=== PATIENT | female | born 1960 ===

== ENCOUNTER 2017-05-15 07:38 | Observation (INO) | payer OTHER ==
--- NOTE | 2017-05-15 07:58 | C.PDOC ---
History Of Present Illness 56-YEAR-OLD FEMALE, PRESENTS TO THE EMERGENCY DEPARTMENT WITH COMPLAINTS OF NEW ONSET PARESTHESIA TO R FACE SINCE 0600. PATIENT NOTES +R VISION CHANGE SINCE YEST. PS FEELS LIKE LIGHT IS FLASHING TOWARDS HER, PRESENT ONLY WHEN MOVES EYES. DENIES VISION LOSS, EYE PAIN. GEN WEAKNESS. past medical history of arthritis, migraines, and gastritis EXAM HEENT NO GROSS VISION DEFICIT. EOMI. NEURO SEE NIH GAIT WNL REMAINDER NEG Time Seen by Provider: 05/15/17 07:55 Chief Complaint (Nursing): Weakness/Neurological Deficit History Per: Patient History/Exam Limitations: no limitations Onset/Duration Of Symptoms: Hrs Current Symptoms Are (Timing): Still Present Past Medical History Reviewed: Historical Data, Nursing Documentation, Vital Signs Vital Signs: Last Vital Signs Temp 98.9 F 05/15/17 07:47 Pulse 66 05/15/17 09:22 Resp 14 05/15/17 09:22 BP 104/66 05/15/17 09:22 Pulse Ox 97 05/15/17 09:24 Family History: States: No Known Family Hx - Social History Hx Alcohol Use: No Hx Substance Use: No Review Of Systems Except As Marked, All Systems Reviewed And Found Negative. Constitutional: Negative for: Fever, Weakness Eyes: Positive for: Vision Change (+R, FEELS LIKE LIGHT IS FLASHING). Negative for: Pain Cardiovascular: Negative for: Chest Pain Respiratory: Negative for: Shortness of Breath Gastrointestinal: Negative for: Vomiting Neurological: Positive for: Other (PARESTHESIA TO R FACE). Negative for: Weakness, Numbness, Incoordination, Change in Speech, Headache Physical Exam - Physical Exam Appears: Non-toxic, No Acute Distress Skin: Normal Color, Warm, Dry, No Rash Head: Atraumatic, Normacephalic Eye(s): bilateral: Normal Inspection, PERRL, EOMI, Other (NO GROSS VISION DEFICIT.) Nose: Normal Oral Mucosa: Moist Lips: Normal Appearing Neck: Normal ROM Cardiovascular: Rhythm Regular, No Murmur Respiratory: Normal Breath Sounds, No Accessory Muscle Use Extremity: Normal ROM Neurological/Psych: Oriented x3, Normal Speech (No focal deficit) Gait: Steady ED Course And Treatment - Laboratory Results Result Diagrams: 05/15/17 08:36 05/15/17 08:36 ECG: Interpreted By Me ECG Rhythm: Sinus Rhythm ECG Interpretation: Normal Rate From EC O2 Sat by Pulse Oximetry: 97 Pulse Ox Interpretation: Normal - Radiology CXR: Interpreted by Me CXR Interpretation: Yes: No Acute Disease NIHSS Stroke Scale - Date/Time Evaluation Performed Date Performed: 05/15/17 Time Performed: 08:06 When Was NIHSS Performed: Baseline - How Severe is the Stoke Level of Consciousness: 0=Alert LOC to Questions: 0=Both comments correct LOC to commands: 0=Obeys both correctly Best Gaze: 0=Normal Visual: 0=No visual loss Facial: 0=Normal Motor Arm - Left: 0=No drift Motor Arm - Right: 0=No drift Motor Leg - Left: 0=No drift Motor Leg - Right: 0=No drift Limb Ataxia: 0=Absent Sensory: 1=Mild to moderate loss Best Language: 0=No aphasia Dysarthia: 0=Normal articulation Extinction & Inattention (Neglect): 0=Normal, no object Score: 1 Severity Of Stroke: 1-4= Minor Stroke Progress - Re-Evaluation Re-evaluation Note: 05/15/17 08:45 advised by registration PT HAS HAD PRIOR ER VISITS. - Data Reviewed Data Reviewed: Lab, Diagnostic imaging, EKG, Old records - Critical Care Citical Care: Excluding Proc Time Critical Care Time: 120 minutes rTPA Inclusion/Exclusion - Refusal of Treatment Patient Refused Treatment: No - Inclusion Criteria for Altepase Patient is 18 years or Older: Yes The Clinical Diagnosis of Ischemic Stroke That is Causing a Potentially Disabling Neurological Deficit: Yes Time of Onset is Well Established to be Less Than 270 Minute Before Treatment Would Begin: Yes Risk/Benefit Discussed With Patient/Family Member Present: Yes - Exclusion Criteria for Altepase Uncontrolled Hypertension at Time of Treatment (Systolic BP above 185 or Diastolic BP above 110 mmHg): No Active Internal Bleeding: No Known Bleeding Diathesis Including but Not Limited to: Platelets Below 100,000/ mm,PTT Above 40 sec After Heparin Use, Current Use of Oral Anitcoagulant With INR Greater Than 1.7 or PT Greater Than 15 secs: No Evidence of an Intracranial Hemorrhage: No Evidence of Major Acute Infarct With Signs Greater Than 1/3 MCA Territory: No Suspicion of Subarachnoid Hemorrhage on Pretreatment Evaluation Even if CT Head Negative For Hemorrhage: No - Warning to TPA With Conditions Following Conditions Weighed Against Anticipated Benefit: No Condition: Stroke Serevity Too Mild Disposition Counseled Patient/Family Regarding: Studies Performed, Diagnosis - Disposition Disposition: HOSPITALIZED Disposition Time: 09:49 Condition: STABLE - POA Present On Arrival: None - Clinical Impression Clinical Impression: Paresthesia, Vision changes, TIA (transient ischemic attack) Decision To Admit - Pt Status Changed To: Hospital Disposition Of: Observation - . Bed Request Type: Telemetry Admitting Physician: Igor Wolf Patient Diagnosis: Paresthesia, Vision changes, TIA (transient ischemic attack)
--- NOTE | 2017-05-15 08:28 | CT ---
PROCEDURE: CT HEAD WITHOUT CONTRAST. HISTORY: Code Stroke R FACIAL PARESTHESA COMPARISON: None available. TECHNIQUE: Axial computed tomography images were obtained through the head/brain without intravenous contrast. Radiation dose: Total exam DLP = 694.66 mGy-cm. This CT exam was performed using one or more of the following dose reduction techniques: Automated exposure control, adjustment of the mA and/or kV according to patient size, and/or use of iterative reconstruction technique. FINDINGS: HEMORRHAGE: No intracranial hemorrhage. BRAIN: No evidence of acute. No obvious parenchymal nor extra-axial mass or collection. Mild generalized volume loss. VENTRICLES: No obstructive hydrocephalus. CALVARIUM: U no acute calvarial fractures. . PARANASAL SINUSES: Small focal area polypoid like mucosal thickening left maxillary antrum. MASTOID AIR CELLS: Unremarkable as visualized. No inflammatory changes. OTHER FINDINGS: None. IMPRESSION: No acute intracranial hemorrhage. Mild generalized volume loss. Dr. Ortega informed these findings of approximately at the 0822 hrs. with written down and verification.
[2017-05-15 08:43] LABS: BASO # 0.1 K/uL (0.0-0.2); EOS # 0.1 K/uL (0.0-0.7); EOS % 1.9 % (0.0-4.0); HEMATOCRIT 40.6 % (34.0-47.0); LYMPH # 1.8 K/uL (1.0-4.3); LYMPH % 23.2 % (20.0-40.0); MEAN CELL VOLUME 88.1 fL (81.0-99.0); MEAN CORPUSCULAR HEMOGLOBIN 29.8 pg (27.0-31.0); MEAN CORPUSCULAR HGB CONC 33.8 g/dL (33.0-37.0); MONO # 0.5 K/uL (0.0-0.8); MONO % 6.4 % (0.0-10.0); NRBC % 0.1 % (0.0-2.0); RED CELL DISTRIBUTION WIDTH 13.8 % (11.5-14.5); WHITE BLOOD COUNT 7.7 K/uL (4.8-10.8)
[2017-05-15 08:48] LABS: CHLORIDE 99 mmol/L (98-107); POTASSIUM 3.6 mmol/L (3.6-5.2); SODIUM 142 mmol/L (132-148)
[2017-05-15 08:50] LABS: ALB/GLOB RATIO 1.2 (1.0-2.1); BILIRUBIN,TOTAL 0.7 mg/dL (0.2-1.3); CARBON DIOXIDE 29 mmol/L (22-30); CHOLESTEROL 189 mg/dL (0-199); GFR AFRICAN-AMERICAN > 60; TOTAL PROTEIN 7.4 g/dL (6.3-8.3)
[2017-05-15 08:51] LABS: ALKALINE PHOSPHATASE 105 U/L (38-126); ALT/SGPT 37 U/L (9-52); AST/SGOT 28 U/L (14-36); BLOOD UREA NITROGEN 14 mg/dL (7-17); CALCIUM 8.7 mg/dl (8.6-10.4); GLUCOSE,RANDOM 101 mg/dL (65-105)
--- NOTE | 2017-05-15 09:41 | RAD ---
HISTORY: Paresthesia. COMPARISON: No prior study available comparison FINDINGS: LUNGS: Mild bibasilar atelectasis. PLEURA: No significant pleural effusion identified, no pneumothorax apparent. CARDIOVASCULAR: Normal. OSSEOUS STRUCTURES: No minor multilevel degenerative spondylosis of the thoracic spine. VISUALIZED UPPER ABDOMEN: Normal. OTHER FINDINGS: None. IMPRESSION: Mild bibasilar atelectasis.
--- NOTE | 2017-05-15 11:12 | CP.PCM.HP ---
<Edna Ho - Last Filed: 05/15/17 11:40> History of Present Illness - History of Present Illness History of Present Illness: CC: right facial numbness 56 year old female with past medical history of arthritis, gastritis and migraines presents with right sided orbital pain, right facial numbness and tingling and right eye floaters. These symptoms began last night around 6 pm. Since last night symptoms improved, but this morning symptoms worsened. Patient did not take any medications for her symptoms. Patient denies having any weakness, numbness or tingling in here extremities. Patient denies having these symptoms before. She states that this pain does not feel like her HAs in the past. patient denies having any CP, SOB, abd pain, N/v/d/C. In ED, patient had CT of head which was negative. 12 point ROS are negative except for the above mentioned. PMHx: stated above Sx: partial hysterectomy Meds: occasionally takes ibuprofen, ranitidine. Daily multivitamin, Vit E, omega 3. Takes a water pill daily but does not know name NKDA Social; denies tobacco or drug use. Occasional ETOH use PMD: Dr. Sarah Present on Admission - Present on Admission Any Indicators Present on Admission: No Past Patient History - Past Social History Smoking Status: Never Smoked Chewing Tobacco Use: No Cigar Use: No Alcohol: Occasional Drugs: Denies - CARDIAC Other/Comment: "fluid retention" - PSYCHIATRIC Hx Substance Use: No - SURGICAL HISTORY Other/Comment: uterine cyst and ovarian cyst sx Meds Allergies/Adverse Reactions: Allergies Allergy/AdvReac Type Severity Reaction Status Date / Time No Known Allergies Allergy Unverified 05/15/17 07:46 Physical Exam - Constitutional Appears: Non-toxic, No Acute Distress - Head Exam Head Exam: ATRAUMATIC - Eye Exam Eye Exam: EOMI - ENT Exam ENT Exam: Mucous Membranes Moist - Respiratory Exam Respiratory Exam: Clear to Auscultation Bilateral. absent: Accessory Muscle Use , Rales, Rhonchi, Wheezes, Respiratory Distress - Cardiovascular Exam Cardiovascular Exam: REGULAR RHYTHM, +S1, +S2. absent: Diastolic murmur, Gallop , Rubs, Systolic Murmur - GI/Abdominal Exam GI & Abdominal Exam: Normal Bowel Sounds, Soft. absent: Distended, Firm, Rebound, Rigid, Tenderness - Extremities Exam Extremities exam: Negative for: pedal edema, tenderness - Neurological Exam Neurological exam: Alert, CN II-XII Intact, Motor Sensory Deficit (right sided slight sensory deficit ), Oriented x3 - Psychiatric Exam Psychiatric exam: Normal Affect, Normal Mood - Skin Skin Exam: Dry, Intact, Normal Color, Warm Results - Vital Signs Recent Vital Signs: Last Vital Signs Temp 98.9 F 05/15/17 07:47 Pulse 66 05/15/17 09:22 Resp 14 05/15/17 09:22 BP 104/66 05/15/17 09:22 Pulse Ox 97 05/15/17 09:50 - Labs Result Diagrams: 05/15/17 08:36 05/15/17 08:36 Assessment & Plan - Assessment and Plan (Free Text) Assessment: 56 year old female with past medical history of arthiritis, gastritis, and migraines is admitted for right sided GUPTA, numbness and right sided sensory deficit R/O CVA. CT of head on admission was negative. Vital signed are currently stable Right sided numbness R/O CVA - Neurology, Dr. Stephenson is consulted - Patient will be given stat dose of Aspirin 325 mg and Plvix 300 mg po - Lipid panel shows: TG 128 Chol 189 LDL 135 HDL 44 - Patient started on Crestor 20 mg po qd - NS 100 cc - 1 dose of 2 mg Mg sulfate - 1 dose of 10 mg Decadron IV for GUPTA - Will check MRI/MRA of head and neck, carotid US, echo - Will check TSH/T4 and Hgb A1c - NPO Prophylaxis - Lovenox 40 mg SC - pepcid 20 mg po bid - SCDs Case discussed with attending, Dr. Wolf - Date & Time Date: 05/15/17 Time: 11:46 <Igor Wolf - Last Filed: 05/15/17 17:33> Results - Vital Signs Recent Vital Signs: Last Vital Signs Temp 98.1 F 05/15/17 12:53 Pulse 74 05/15/17 12:53 Resp 20 05/15/17 12:53 BP 116/64 05/15/17 12:53 Pulse Ox 97 05/15/17 12:53 - Labs Result Diagrams: 05/15/17 08:36 05/15/17 08:36 Labs: Laboratory Results - last 24 hr 05/15/17 11:05 Urine Color Straw Urine Clarity Clear Urine pH 7.0 Ur Specific [place] 1.005 Urine Protein Negative Urine Glucose (UA) Normal Urine Ketones Negative Urine Blood Negative Urine Nitrate Negative Urine Bilirubin Negative Urine Urobilinogen Normal Ur Leukocyte Esterase Neg Urine WBC (Auto) 2 Urine RBC (Auto) < 1 Ur Squamous Epith Cells 2 Urine Bacteria Rare Attending/Attestation - Attestation I have personally seen and examined this patient.: Yes I have fully participated in the care of the patient.: Yes I have reviewed all pertinent clinical information: Yes Notes (Text): 05/15/17 17:33 Patient seen and examined at bedside with the resident Patient is admitted to rule out CVA/TIA Neurology consultation has been requested and workup is in progress I discussed the plan of care with the resident and agree with assessment and plan documented by the resident.
[2017-05-15 11:16] LABS: RBC URINE < 1 /hpf (0-3); URINE BACTERIA RARE (<OCC); URINE BILIRUBIN NEGATIVE (NEGATIVE); URINE BLOOD NEGATIVE (NEGATIVE); URINE COLOR Straw (YELLOW); URINE GLUCOSE (UA) NORMAL (Normal); URINE KETONE NEGATIVE (NEGATIVE); URINE LEUKOCYTE ESTERASE NEG Leu/uL (Negative); URINE PROTEIN NEGATIVE (NEGATIVE); URINE UROBILINOGEN NORMAL mg/dL (0.2-1.0); WBC URINE 2 /hpf (0-5)
[2017-05-15] MEDS ORDERED: Enoxaparin 40 mg Syringe ONE (11:28)
[2017-05-15] MEDS: Enoxaparin 40 mg Syringe SC SCH (11:29)
[2017-05-15] MEDS ORDERED: Dexamethasone 4 mg/1 ml ONE (11:46)
[2017-05-15] MEDS ORDERED: Sodium Chloride 0.9% 1,000 ML ONE (11:47)
[2017-05-15] MEDS: Sodium Chloride 0.9% 1,000 ML IV SCH ×3 (11:50→21:45)
--- NOTE | 2017-05-15 12:03 | CP.PCM.CON ---
History of Present Illness - History of Present Illness History of Present Illness: Mrs. Kelly Camacho is a 56-year-old woman with a past medical history of migraine headaches and dyslipidemia who presented to the ED after she developed a right retro-orbital headache associated with nausea, visual aura and loss of sensation of the right face and arm. Her symptoms have been on and off for the past 2-3 days. But, the headache started 3 days ago. Vital signs were normal. Neurology was consulted to assist with the management and care. Review of Systems - Review of Systems All systems: reviewed and no additional remarkable complaints except Past Patient History - Past Social History Smoking Status: Never Smoked Chewing Tobacco Use: No Cigar Use: No Alcohol: Occasional Drugs: Denies - CARDIAC Other/Comment: "fluid retention" - PSYCHIATRIC Hx Substance Use: No - SURGICAL HISTORY Other/Comment: uterine cyst and ovarian cyst sx Meds Allergies/Adverse Reactions: Allergies Allergy/AdvReac Type Severity Reaction Status Date / Time No Known Allergies Allergy Unverified 05/15/17 07:46 - Medications Medications: Current Medications Acetaminophen (Tylenol 325mg Tab) 650 mg PO Q6 PRN PRN Reason: pain Aspirin (Ecotrin) 81 mg PO DAILY [facility] Clopidogrel Bisulfate (Plavix) 75 mg PO DAILY [facility] Enoxaparin Sodium (Lovenox) 40 mg SC DAILY [facility] Last Admin: 05/15/17 11:29 Dose: 40 mg Famotidine (Pepcid) 20 mg PO BID [facility] Sodium Chloride (Sodium Chloride 0.9%) 1,000 mls @ 100 mls/hr IV .Q10H [facility] Last Admin: 05/15/17 11:50 Dose: 100 mls/hr Rosuvastatin Calcium (Crestor) 10 mg PO [facility] Physical Exam - Constitutional Appears: Well - Head Exam Head Exam: ATRAUMATIC, NORMAL INSPECTION, NORMOCEPHALIC - Eye Exam Eye Exam: EOMI, Normal appearance, PERRL - ENT Exam ENT Exam: Mucous Membranes Moist, Normal Exam - Neck Exam Neck exam: Positive for: Normal Inspection - Respiratory Exam Respiratory Exam: Clear to Auscultation Bilateral, NORMAL BREATHING PATTERN - Cardiovascular Exam Cardiovascular Exam: REGULAR RHYTHM, +S1, +S2 - GI/Abdominal Exam GI & Abdominal Exam: Normal Bowel Sounds, Soft. absent: Tenderness - Rectal Exam Rectal Exam: Deferred - Extremities Exam Extremities exam: Positive for: normal inspection - Back Exam Back exam: NORMAL INSPECTION - Neurological Exam Neurological exam: CN II-XII Intact, Oriented x3 - Expanded Neurological Exam Expanded Patient oriented to: person, place, time Cranial nerves: EOM's Intact: Normal, Facial Sensation: Normal Ataxia: No Cerebellar Function: Finger to Nose: Normal, Heel to [place]: Normal Upper motor neuron: Babinski Sign: Normal Sensory exam: Lower Extremity Light Touch: Normal, Lower Extremity Pin Prick: Normal, Upper Extremity Light Touch: Abnormal Right, Upper Extremity Pin Prick: Abnormal Right Neuro motor strength exam: Left Upper Extremity: 5, Right Upper Extremity: 5, Left Lower Extremity: 5, Right Lower Extremity: 5 DTR: Achilles Tendon Left: 2+, Achilles Tendon Right: 2+, Bicep Left: 2+, Bicep Right: 2+, Brachioradialis Left: 2+, Brachioradialis Right: 2+, Patellar Left: 2 +, Patellar Right: 2+, Tricep Left: 2+, Tricep Right: 2+ - Psychiatric Exam Psychiatric exam: Normal Affect, Normal Mood - Skin Skin Exam: Dry, Intact, Normal Color, Warm Results - Vital Signs Recent Vital Signs: Last Vital Signs Temp 98.9 F 05/15/17 07:47 Pulse 76 05/15/17 11:24 Resp 15 05/15/17 11:24 BP 118/69 05/15/17 11:24 Pulse Ox 100 05/15/17 11:24 - Labs Result Diagrams: 05/15/17 08:36 05/15/17 08:36 Labs: Laboratory Results - last 24 hr 05/15/17 11:05 Urine Color Straw Urine Clarity Clear Urine pH 7.0 Ur Specific [place] 1.005 Urine Protein Negative Urine Glucose (UA) Normal Urine Ketones Negative Urine Blood Negative Urine Nitrate Negative Urine Bilirubin Negative Urine Urobilinogen Normal Ur Leukocyte Esterase Neg Urine WBC (Auto) 2 Urine RBC (Auto) < 1 Ur Squamous Epith Cells 2 Urine Bacteria Rare - Imaging and Cardiology CT scan - head Status: Image reviewed by me, Report reviewed by me (No acute findings. ) Assessment & Plan (1) Complicated migraine Assessment and Plan: The visual and sensory changes associated with migraine-like headache in a patient with a history of migraine is most likely due to complicated migraine headache. However, due to the presentation and the history, we should also rule out ischemic stroke. I recommend the followin. Telemetry 2. MRI of the brain without contrast, MRA of the head/neck without contrast 3. Echocardiogram with bubble study 4. Load with Plavix 300 mg PO once and aspirin 81 mg daily 5. Magnesium Sulfate 2 grams IV once, Decadron 10 mg IV once for migraine 6. Crestor 10 mg PO daily to maintain LDL< 100 7. DVT Px 8. PT/OT eval 9. IVF with NS at 100 mL/hr Thank you. Status: Acute Priority: High (2) Paresthesia Status: Acute Priority: Medium - Assessment and Plan (Free Text) Assessment: Likely related to migraine, but will follow imaging and exam. Plan: See above plan.
[2017-05-16 07:47] LABS: BASO % 0.1 % (0.0-2.0); HEMATOCRIT 38.7 % (34.0-47.0); LYMPH # 1.4 K/uL (1.0-4.3); LYMPH % 9.4 % (20.0-40.0); MEAN CELL VOLUME 88.1 fL (81.0-99.0); MEAN CORPUSCULAR HEMOGLOBIN 29.5 pg (27.0-31.0); MEAN CORPUSCULAR HGB CONC 33.5 g/dL (33.0-37.0); MEAN PLATELET VOLUME 8.3 fL (7.2-11.7); MONO # 0.6 K/uL (0.0-0.8); MONO % 3.8 % (0.0-10.0); PLATELET COUNT 224 K/uL (130-400); RED CELL DISTRIBUTION WIDTH 13.5 % (11.5-14.5)
[2017-05-16 07:50] LABS: WHITE BLOOD COUNT 14.9 K/uL (4.8-10.8)
[2017-05-16 08:14] LABS: T4 5.33 ug/dL (5.5-11.0)
[2017-05-16 08:24] LABS: CHLORIDE 106 mmol/L (98-107); POTASSIUM 3.3 mmol/L (3.6-5.2); SODIUM 144 mmol/L (132-148)
[2017-05-16 08:26] LABS: GFR AFRICAN-AMERICAN > 60
[2017-05-16 08:27] LABS: ALB/GLOB RATIO 1.1 (1.0-2.1); ALKALINE PHOSPHATASE 93 U/L (38-126); ALT/SGPT 36 U/L (9-52); AST/SGOT 26 U/L (14-36); BILIRUBIN,TOTAL 0.5 mg/dL (0.2-1.3); BLOOD UREA NITROGEN 15 mg/dL (7-17); CARBON DIOXIDE 23 mmol/L (22-30); GLUCOSE,RANDOM 120 mg/dL (65-105); TOTAL PROTEIN 6.6 g/dL (6.3-8.3)
[2017-05-16 08:28] LABS: CALCIUM 8.1 mg/dl (8.6-10.4); THYROID STIMULATING HORMONE 0.83 mIU/L (0.46-4.68)
[2017-05-16 08:31] LABS: NEUTROPHIL 89 % (50-75); TOTAL CELLS COUNTED 100
[2017-05-16] MEDS ORDERED: Potassium Chloride 20 mEq ER Tab PO ONE (10:30)
[2017-05-16] MEDS: Enoxaparin 40 mg Syringe SC SCH (10:55)
--- NOTE | 2017-05-16 11:04 | MRI ---
PROCEDURE: MRI BRAIN WITHOUT CONTRAST HISTORY: right sided numbness COMPARISON: Noncontrast head CT from 05/15/2017 TECHNIQUE: Multiplanar, multisequence MR images of the brain were obtained without intravenous contrast enhancement. FINDINGS: HEMORRHAGE: None DWI: No evidence of an acute or early subacute infarction. BRAIN PARENCHYMA: There is focal increased T2/FLAIR signal in the left posterior parietal cortex without corresponding restricted diffusion Sahni-white matter differentiation is seen is preserved. There is no mass, mass effect or extra-axial fluid collection. There are few scattered tiny T2/FLAIR hyperintense foci in the subcortical supratentorial white matter. The midline sagittal structures are normal. VENTRICLES: There is mild global parenchymal volume loss and proportionate enlargement of the ventricles and cortical sulci, advanced for the patient's age. CRANIUM: There is normal bone marrow signal pattern e. ORBITS: Grossly unremarkable. PARANASAL SINUSES/MASTOIDS: Predominantly clear. VASCULAR SYSTEM: There are normal signal voids in the larger intracranial arteries. OTHER FINDINGS: None. IMPRESSION: 1. No acute intracranial abnormality, specifically, no evidence of acute infarction. 2. Focal abnormal signal in the left posterior parietal cortex is strictly nonspecific, the differential considerations include old infarction, encephalitis and neoplasm are not entirely excluded. A dedicated MRI of the brain with intravenous contrast is recommended for further characterization.
--- NOTE | 2017-05-16 11:06 | MRI ---
PROCEDURE: Magnetic Resonance Angiography Brain HISTORY: Right sided numbness COMPARISON: None available. TECHNIQUE: 3D time of flight MR angiography of the intracranial arteries was performed. Rotating maximum intensity projection images were generated. FINDINGS: INTERNAL CEREBRAL ARTERIES: Normal in caliber. The skull base, petrous, cavernous and supraclinoid segments are bilaterally widely patient. ANTERIOR CEREBRAL ARTERIES: Normal in caliber. A1 and A2 segments are widely patent. Smaller distal branches unremarkable, as visualized. MIDDLE CEREBRAL ARTERIES: Normal in caliber. M1 and M2 segments are widely patent. Perisylvian branches grossly symmetric. POSTERIOR CIRCULATION: Basilar Artery: Normal in caliber. Distal Vertebral Arteries: Normal in caliber. Posterior Cerebral Arteries: Normal in caliber. Posterior Inferior Cerebellar Arteries: Normal in caliber. ANEURYSM/ VASCULAR MALFORMATIONS: None. OTHER FINDINGS: None. IMPRESSION: Normal MR angiography of the brain.
--- NOTE | 2017-05-16 11:08 | MRI ---
PROCEDURE: MR Angiography of the neck without contrast HISTORY: Right sided numbness COMPARISON: None available. TECHNIQUE: 3D [id number] angiography of the neck was performed. Rotating maximum intensity projection images of the cervical carotid and vertebral arteries were generated. The origins of the common carotid arteries were not visualized, which is a limitation inherent to the non-contrast time of flight technique. FINDINGS: RIGHT CAROTID ARTERIES: Common Carotid Artery: Normal. Carotid Bifurcation: Normal. Internal Carotid Artery:Normal. External Carotid Artery (proximal branches): Normal. LEFT CAROTID ARTERIES: Common Carotid Artery: Normal. Carotid Bifurcation: Normal. Internal Carotid Artery:Normal. External Carotid Artery (proximal branches): Normal. VERTEBRAL ARTERIES: Right Vertebral Artery: Normal. Left Vertebral Artery: Normal. OTHER FINDINGS: None. IMPRESSION: Normal MR Angiography of the neck.
--- NOTE | 2017-05-16 13:20 | CP.PCM.PN ---
<Ximena Raymundo V - Last Filed: 05/16/17 17:03> Objective - Vital Signs/Intake and Output Vital Signs (last 24 hours): Temp Pulse Resp BP Pulse Ox 98.1 F 62 18 102/63 98 05/16/17 15:47 05/16/17 15:47 05/16/17 15:47 05/16/17 15:47 05/16/17 15:47 Intake and Output: 05/16/17 05/16/17 06:59 18:59 Intake Total 1200 1040 Balance 1200 1040 - Medications Medications: Current Medications Acetaminophen (Tylenol 325mg Tab) 650 mg PO Q6 PRN PRN Reason: pain Last Admin: 05/16/17 03:19 Dose: 650 mg Aspirin (Ecotrin) 81 mg PO DAILY [facility] Last Admin: 05/16/17 10:55 Dose: 81 mg Clopidogrel Bisulfate (Plavix) 75 mg PO DAILY [facility] Last Admin: 05/16/17 10:55 Dose: 75 mg Docusate Sodium (Colace) 100 mg PO BID [facility] Enoxaparin Sodium (Lovenox) 40 mg SC DAILY [facility] Last Admin: 05/16/17 10:55 Dose: 40 mg Famotidine (Pepcid) 20 mg PO BID [facility] Last Admin: 05/16/17 10:55 Dose: 20 mg Sodium Chloride (Sodium Chloride 0.9%) 1,000 mls @ 100 mls/hr IV .Q10H [facility] Last Admin: 05/16/17 13:44 Dose: 100 mls/hr Rosuvastatin Calcium (Crestor) 10 mg PO HS [facility] Last Admin: 05/15/17 21:15 Dose: 10 mg - Labs Labs: 05/16/17 07:05 05/16/17 07:05 PT 10.7 SECONDS (9.7-12.2) 05/16/17 07:05 INR 1.0 05/16/17 07:05 APTT 27 SECONDS (21-34) 05/16/17 07:05 Attending/Attestation - Attestation I have personally seen and examined this patient.: Yes I have fully participated in the care of the patient.: Yes I have reviewed all pertinent clinical information, including history, physical exam and plan: Yes Notes (Text): Patient seen, examined, and case discussed with day-time resident. Patient seen at bedside accompanied by her daughter's friend, who she permits speaking in front regarding her medical health. Translation assisted by [place]-speaking family medicine Nena Luther, PGY-3 for Czech. Patient reports annoying eye pain over the right eye for the past 8 days. patient reports black floater in the eye but is able to see shapes and figures of people. patient denies trauma to the eye. patient reports last seen eye doctor about 1.5 years ago. Patient reports pain frontal aspect of the eye, not worsened by palpation, no pulsation noted over temporal aspect of the head. Patient completed MRI imaging this morning; results not available when seen patient. Opthalamology (Dr. Ajit Smiley) discussed with on the floor, who will see the patient regarding abnormal eye floater. Assessment/Plan 1) Complicated Migraine * Neurology (Dr. Shepard) on board-->help appreciated * Given Aspirin 325mg PO X1, and Plavix 300mg PO X1 * Aspirin 81mg PO daily * Plavix 75mg PO daily * Lipid panel shows: TG 128 Chol 189 LDL 135 HDL 44 * Crestor 10mg POqHS * In the ED, given dose of Mg2+ 2gram IV X1, and Decadron 10mg IV X1 for migraine headache * Cartoid doppler completed pending read * Head CT (05/15/17): No acute intracranial hemorrhage. Mild generalized volume loss. * Brain MRI (05/16/17): no acute intracranial abnormality, specifically, no evidence of acute infarction. Focal abnormal signal in the left posterior cortex is strictly nonspecific, old infarction, encephalitis, neoplasm not excluded * Head MRA (05/16/17): normal MR angiography of the brain * Neck MRA (05/16/17): normal MR angiography of the neck * NS 100cc/hr 2) Blurry vision * Neurology (Dr. Shepard) on board-->help appreciated * Opthalamology (Dr. Smiley) on board-->help appreciated * See Complicated migrane for further details 3) Leukocytosis * Given dose of Decadron on 05/15/17 4) Urinary incontinence * Patient reports she has had for about one year; has seen a urologist but unable to make payment; advised outpatient follow-up 5) Electrolyte imbalance * replete * monitor BMP and Mg2+ 6) Prophylactic care * Lovenox 40mg subqdaily for DVT ppx * Pepcid 20mg PO bid for GI ppx * NS 100cc/hr <Adriana Javed - Last Filed: 05/16/17 18:29> Subjective - Date & Time of Evaluation Date of Evaluation: 05/16/17 Time of Evaluation: 07:00 - Subjective Subjective: PGY1- Medicine Note- Dr. Raymundo's Service Patient seen and examined at bedside and in no acute distress. Patient worried about her right eye. She has been having a black spot which moves around in her vision for the past week and she feels as though it is more frequent now. She denies pain around the eye. Patient says there is some discomfort in the eye, no sharp pain or pressure. Patient able to see centrally and peripherally. Patient says right eye peripheral vision seems darker to her. Patient says right sided facial numbness has resolved. Patient has some headache, but says it resolves after she gets ibuprofen. Patient has not had a bm. Patient denies shortness of breath, chest pain, abdominal pain, or diarrhea. Objective - Vital Signs/Intake and Output Vital Signs (last 24 hours): Temp Pulse Resp BP Pulse Ox 98.2 F 57 L 18 107/64 97 05/16/17 07:15 05/16/17 07:15 05/16/17 07:15 05/16/17 07:15 05/16/17 07:15 Intake and Output: 05/16/17 05/16/17 06:59 18:59 Intake Total 1200 Balance 1200 - Medications Medications: Current Medications Acetaminophen (Tylenol 325mg Tab) 650 mg PO Q6 PRN PRN Reason: pain Last Admin: 05/16/17 03:19 Dose: 650 mg Aspirin (Ecotrin) 81 mg PO DAILY [facility] Last Admin: 05/16/17 10:55 Dose: 81 mg Clopidogrel Bisulfate (Plavix) 75 mg PO DAILY [facility] Last Admin: 05/16/17 10:55 Dose: 75 mg Docusate Sodium (Colace) 100 mg PO BID [facility] Enoxaparin Sodium (Lovenox) 40 mg SC DAILY [facility] Last Admin: 05/16/17 10:55 Dose: 40 mg Famotidine (Pepcid) 20 mg PO BID [facility] Last Admin: 05/16/17 10:55 Dose: 20 mg Sodium Chloride (Sodium Chloride 0.9%) 1,000 mls @ 100 mls/hr IV .Q10H [facility] Last Admin: 05/15/17 21:45 Dose: Not Given Rosuvastatin Calcium (Crestor) 10 mg PO HS [facility] Last Admin: 05/15/17 21:15 Dose: 10 mg - Labs Labs: 05/16/17 07:05 05/16/17 07:05 PT 10.7 SECONDS (9.7-12.2) 05/16/17 07:05 INR 1.0 05/16/17 07:05 APTT 27 SECONDS (21-34) 05/16/17 07:05 - Constitutional Appears: Well, Non-toxic, No Acute Distress - Head Exam Head Exam: ATRAUMATIC, NORMAL INSPECTION, NORMOCEPHALIC - Eye Exam Eye Exam: EOMI, Normal appearance, PERRL Additional comments: peripheral vision intact bilaterally - ENT Exam ENT Exam: Mucous Membranes Moist, Normal Exam - Neck Exam Neck Exam: Full ROM, Normal Inspection. absent: Lymphadenopathy - Respiratory Exam Respiratory Exam: Clear to Ausculation Bilateral, NORMAL BREATHING PATTERN. absent: Rales, Rhonchi, Wheezes, Respiratory Distress, Stridor - Cardiovascular Exam Cardiovascular Exam: REGULAR RHYTHM, RRR. absent: Murmur - GI/Abdominal Exam GI & Abdominal Exam: Normal Bowel Sounds. absent: Soft - Extremities Exam Extremities Exam: Full ROM, Normal Inspection. absent: Pedal Edema - Back Exam Back Exam: Full ROM, NORMAL INSPECTION - Neurological Exam Neurological Exam: Alert, Awake, CN II-XII Intact, Oriented x3 Neuro motor strength exam: Left Upper Extremity: 5, Right Upper Extremity: 5, Left Lower Extremity: 5, Right Lower Extremity: 5 - Psychiatric Exam Psychiatric exam: Normal Affect, Normal Mood - Skin Skin Exam: Intact, Normal Color, Warm Assessment and Plan - Assessment and Plan (Free Text) Assessment: 1) Complicated Migraine * Neurology (Dr. Shepard) on board, help appreciated * Given Aspirin 325mg PO X1, and Plavix 300mg PO X1 * Aspirin 81mg PO daily * Plavix 75mg PO daily * Lipid: TG 128 Chol 189 LDL 135 HDL 44 * Crestor 10mg POqHS * Cartoid doppler negative * Head CT 05/15/17: No acute intracranial hemorrhage. Mild generalized volume loss. * Brain MRI 05/16/17: no acute intracranial abnormality, specifically, no evidence of acute infarction. Focal abnormal signal in the left posterior cortex is strictly nonspecific, old infarction, encephalitis, neoplasm not excluded * MRI with contrast ordered as per Dr. Shepard * Head MRA 05/16/17: (-) * Neck MRA 05/16/17: (-) * NS 100cc/hr 2) Vision Change * patient seeing floater in right eye for 1 week * Neurology (Dr. Shepard) on board-->help appreciated * Opthalamology (Dr. Smiley) on board-->help appreciated 3) Leukocytosis * Given dose of Decadron on 05/15/17, increased from 7.7 to 14.9 * monitor 4) Urinary incontinence * chronic, about 1 year * f/u with urology outpatient 5) Electrolyte imbalance * K+ 3.3, repleted with KDUR 40 * monitor BMP and Mg2+ 6) Prophylactic care * Lovenox 40mg subqdaily for DVT ppx * Pepcid 20mg PO bid for GI ppx * NS 100cc/hr
[2017-05-16] MEDS: Sodium Chloride 0.9% 1,000 ML IV SCH (13:44)
--- NOTE | 2017-05-16 23:05 | CON ---
DATE: 05/16/2017 HISTORY OF PRESENT ILLNESS: The patient was admitted for possible CVA. She reports that for the last 8 days she has had a dark spot floating in her right eye. She has no reports of flashes. She does report her vision seems blurrier in both eyes. PAST MEDICAL HISTORY: Per patient includes water retention for which she said she is on medication. She reports no history of diabetes or hypertension. She reports no history of any ocular procedures. PHYSICAL EXAMINATION HEENT: Her vision is 20/50 near in both eyes. Her pupils are equal and reactive to light. Her cornea is clear. Her anterior chambers clear. She does have early cataracts in both eyes. Her posterior exam shows normal nerve and retina in both eyes. Her right eye does have a posterior vitreous detachment which can be monitored. ASSESSMENT AND PLAN: Posterior vitreous detachment in the right eye. No signs of retinal detachment. I instructed the patient to follow up with ophthalmology once she is discharged for her cataract *------*they can be observed as an outpatient. If there is any questions, you can call to [phone]. Ajit Smiley MD
[2017-05-17] MEDS: Sodium Chloride 0.9% 1,000 ML IV SCH (00:30)
[2017-05-17 01:12] VITALS: RESP 20
--- NOTE | 2017-05-17 05:52 | CARD ---
APPROVED REPORT EXAM: Two-dimensional and M-mode echocardiogram with Doppler and color Doppler. Other Information Quality : [employer] : NSR INDICATION CVA/TIA RIGHT SIDED NUMBNESS; hx OF ARTHRITIS M-Mode DIMENSIONS RVDd1.77 (2.1-3.2cm)Left Atrium (MM)3.13 (2.5-4.0cm) IVSd0.73 (0.7-1.1cm)Aortic Root2.70 (2.2-3.7cm) LVDd4.32 (4.0-5.6cm)Aortic Cusp Exc.1.73 (1.5-2.0cm) PWd0.70 (0.7-1.1cm)FS (%) 41 % LVDs2.55 (2.0-3.8cm)LVEF (%)72 (>50%) Mitral Valve MV E Fcxoagbr13.1cm/sMV A Vdgaqdrz336.1cm/sE/A ratio0.9 TDI E/Lateral E'0.0E/Medial E'0.0 Tricuspid Valve TR Peak [id number]/sTR Peak [id number] LEFT VENTRICLE The left ventricle is normal size. There is normal left ventricular wall thickness. Left ventricle systolic function is normal. The Ejection Fraction is >70%. There is normal LV segmental wall motion. Tissue Doppler imaging reveals abnormal left ventricular diastolic dysfunction. RIGHT VENTRICLE The right ventricle is normal size. There is normal right ventricular wall thickness. The right ventricular systolic function is normal. ATRIA The left atrium size is normal. The right atrium size is normal. The interatrial septum is intact with no evidence for an atrial septal defect. AORTIC VALVE The aortic valve is normal in structure. There is trace aortic regurgitation. There is no aortic valvular stenosis. There is no aortic valvular vegetation. MITRAL VALVE The mitral valve is normal in structure. There is no evidence of mitral valve prolapse. There is no mitral valve stenosis. Mitral regurgitation is mild. TRICUSPID VALVE The tricuspid valve is normal in structure. There is mild tricuspid regurgitation. Right ventricular systolic pressure is estimated at less than 30 mmHg. There is no pulmonary hypertension. There is no tricuspid valve prolapse or vegetation. There is no tricuspid valve stenosis. PULMONIC VALVE The pulmonic valve is not well visualized. There is no pulmonic valvular regurgitation. GREAT VESSELS The aortic root is normal in size. PERICARDIAL EFFUSION There is no significant pericardial effusion. <Conclusion> Left ventricle systolic function is normal. The Ejection Fraction is >70%. Diastolic dysfunction. There is trace aortic regurgitation. Mitral regurgitation is mild. There is mild tricuspid regurgitation. There is no pulmonary hypertension. There is no pulmonic valvular regurgitation.
[2017-05-17 06:56] LABS: BASO % 0.6 % (0.0-2.0); EOS # 0.1 K/uL (0.0-0.7); EOS % 0.7 % (0.0-4.0); HEMATOCRIT 35.3 % (34.0-47.0); LYMPH # 3.4 K/uL (1.0-4.3); MEAN CELL VOLUME 87.9 fL (81.0-99.0); MEAN CORPUSCULAR HEMOGLOBIN 30.5 pg (27.0-31.0); MEAN CORPUSCULAR HGB CONC 34.7 g/dL (33.0-37.0); MEAN PLATELET VOLUME 8.2 fL (7.2-11.7); MONO # 0.5 K/uL (0.0-0.8); MONO % 6.4 % (0.0-10.0); RED CELL DISTRIBUTION WIDTH 13.7 % (11.5-14.5); WHITE BLOOD COUNT 8.2 K/uL (4.8-10.8)
[2017-05-17 07:22] LABS: ALKALINE PHOSPHATASE 71 U/L (38-126); ALT/SGPT 32 U/L (9-52); AST/SGOT 24 U/L (14-36); BILIRUBIN,TOTAL 0.5 mg/dL (0.2-1.3); BLOOD UREA NITROGEN 15 mg/dL (7-17); CALCIUM 7.7 mg/dl (8.6-10.4); CARBON DIOXIDE 24 mmol/L (22-30); CHLORIDE 110 mmol/L (98-107); GFR AFRICAN-AMERICAN > 60; GLUCOSE,RANDOM 86 mg/dL (65-105); MAGNESIUM 2.1 mg/dL (1.6-2.3); PHOSPHOROUS 2.7 mg/dL (2.5-4.5); POTASSIUM 3.7 mmol/L (3.6-5.2); SODIUM 145 mmol/L (132-148); TOTAL PROTEIN 5.7 g/dL (6.3-8.3)
[2017-05-17] MEDS ORDERED: Gadodiamide 287 MG/ML VIAL (15ML) IV ONE (10:05)
[2017-05-17] MEDS: Enoxaparin 40 mg Syringe SC SCH (10:32)
--- NOTE | 2017-05-17 11:18 | MRI ---
PROCEDURE: MRI BRAIN WITH AND WITHOUT CONTRAST HISTORY: based on previous study, possible neoplasm COMPARISON: Prior unenhanced brain MRI 05/16/2017. TECHNIQUE: Multiplanar, multisequence MR images of the brain were obtained with and without intravenous contrast enhancement. FINDINGS: HEMORRHAGE: None DWI: No evidence of an acute or early subacute infarction. BRAIN PARENCHYMA: No abnormal intracranial enhancement is appreciated in this dedicated T1 weighted brain MRI. ENHANCEMENT: No abnormal intracranial enhancement. VENTRICLES: Unremarkable. No hydrocephalus. CRANIUM: Unremarkable. ORBITS: Grossly unremarkable. PARANASAL SINUSES/MASTOIDS: Clear VASCULAR SYSTEM: Skull base flow voids intact. OTHER FINDINGS: Stable age related neuro degenerative changes are appreciated once again.. IMPRESSION: Stable age-related neuro degenerative change is identified without abnormal intracranial enhancement above or below the tentorium including the left parietal lobe. Still, low-grade neoplasm difficult to completely exclude in which enhancement is not necessarily expected. Post seizure related reaction is possible. Encephalitis is not favored given the lack of intravenous contrast enhancement. The lack of focal restricted diffusion is not supportive of an infarction. Follow-up brain MRI is advised as well as clinical follow-up.
--- NOTE | 2017-05-17 14:01 | VASCLAB ---
PROCEDURE: HISTORY: right sided numbness COMPARISON: None available. TECHNIQUE: Grayscale and duplex Doppler evaluation of the cervical carotid and vertebral arteries were performed. The common carotid, carotid bifurcations and cervical Internal Carotid Artery (ICA) and proximal External Carotid Artery (ECA) were evaluated. The vertebral arteries were evaluated for gross patency and flow direction. Report prepared by Mike Erickson, BS, RVT FINDINGS: RIGHT CAROTID ARTERIES: 1. Common Carotid Artery: No significant focal plaque formation of the right common carotid artery. Maximum Peak Systolic velocity: 88 cm/sec: End-diastolic velocity 24 cm/sec. 2. Carotid Bifurcation: plaque formation. Maximum Peak Systolic velocity: 118 cm/sec: End-diastolic velocity 13 cm/sec. 3. Internal Carotid Artery: Plaque description: 3.1. Proximal Segment: Peak systolic velocity 65 cm/sec: End-diastolic velocity 21 cm/sec - % stenosis 0-15% 3.2. Middle Segment: Peak systolic velocity 99 cm/sec: End-diastolic velocity 33 cm/sec - % stenosis 0-15% 3.3. Distal Segment: Peak systolic velocity 56 cm/sec: End-diastolic velocity 15 cm/sec - % stenosis 0-15% 4. External Carotid Artery: No significant focal plaque formation. Peak systolic velocity 118 cm/sec 5. ICA/CCA Ratio: 1.1 LEFT CAROTID ARTERIES: 1. Common Carotid Artery: No significant focal plaque formation of the left common carotid artery. Maximum Peak Systolic velocity: 79 cm/sec: End-diastolic velocity 17 cm/sec. 2. Carotid Bifurcation: plaque formation. Maximum Peak Systolic velocity: 87 cm/sec: End-diastolic velocity 14 cm/sec. 3. Internal Carotid Artery: Plaque description: 3.1. Proximal Segment: Peak systolic velocity 120 cm/sec: End-diastolic velocity 33 cm/sec - % stenosis 0-15% 3.2. Middle Segment: Peak systolic velocity 111 cm/sec: End-diastolic velocity 28 cm/sec - % stenosis 0-15% 3.3. Distal Segment: Peak systolic velocity 79 cm/sec: End-diastolic velocity 22 cm/sec - % stenosis 0-15% 4. External Carotid Artery: No significant focal plaque formation. Peak systolic velocity 112 cm/sec 5. ICA/CCA Ratio: 1.5 VERTEBRAL ARTERIES: 1. Right Vertebral Artery: The right vertebral artery flow direction is antegrade. 2. Left Vertebral Artery: The left vertebral artery flow direction is antegrade. OTHER FINDINGS: 1. Right Brachial Blood pressure: 140 mmHg. 2. Left Brachial Blood pressure: 136 mmHg. IMPRESSION: RIGHT: Duplex scan does not suggest hemodynamically significant stenosis of the right extracranial carotid arteries. LEFT: Duplex scan does not suggest hemodynamically significant stenosis of the left extracranial carotid arteries.
[2017-05-17 16:43] VITALS: BP 106/69; PULSE 67; TEMP 97.4; O2SAT 97
--- NOTE | 2017-05-17 18:38 | CP.PCM.DIS ---
<Adriana Javed - Last Filed: 05/17/17 18:55> Provider - Provider Date of Admission: 05/15/17 09:50 Attending physician: Igor Wolf MD Primary care physician: Dr. Sarah Consults: Dr. Ziegler (neurology) Dr. Mendes (ophthalmology) Time Spent in preparation of Discharge (in minutes): 45 Diagnosis - Discharge Diagnosis (4) Paresthesia Status: Resolved Priority: Medium Comment: see summary for details (5) Vision changes Status: Acute Comment: see summary for details (6) Complicated migraine Status: Resolved Priority: High Comment: see summary for details Hospital Course - Lab Results Lab Results: Most Recent Lab Values WBC 8.2 K/uL (4.8-10.8) 05/17/17 06:43 RBC 4.01 Mil/uL (3.80-5.20) 05/17/17 06:43 Hgb 12.2 g/dL (11.0-16.0) 05/17/17 06:43 Hct 35.3 % (34.0-47.0) 05/17/17 06:43 MCV 87.9 fL (81.0-99.0) 05/17/17 06:43 MCH 30.5 pg (27.0-31.0) 05/17/17 06:43 MCHC 34.7 g/dL (33.0-37.0) 05/17/17 06:43 RDW 13.7 % (11.5-14.5) 05/17/17 06:43 Plt Count 181 K/uL (130-400) 05/17/17 06:43 MPV 8.2 fL (7.2-11.7) 05/17/17 06:43 Neut % (Auto) 50.3 % (50.0-75.0) 05/17/17 06:43 Lymph % (Auto) 42.0 % (20.0-40.0) H 05/17/17 06:43 [place] % (Auto) 6.4 % (0.0-10.0) 05/17/17 06:43 Eos % (Auto) 0.7 % (0.0-4.0) 05/17/17 06:43 Baso % (Auto) 0.6 % (0.0-2.0) 05/17/17 06:43 Neut # 4.1 K/uL (1.8-7.0) 05/17/17 06:43 Lymph # 3.4 K/uL (1.0-4.3) 05/17/17 06:43 [place] # 0.5 K/uL (0.0-0.8) 05/17/17 06:43 Eos # 0.1 K/uL (0.0-0.7) 05/17/17 06:43 Baso # 0.0 K/uL (0.0-0.2) 05/17/17 06:43 Neutrophils % (Manual) 89 % (50-75) H 05/16/17 07:05 Lymphocytes % (Manual) 10 % (20-40) L 05/16/17 07:05 Monocytes % (Manual) 1 % (0-10) 05/16/17 07:05 Platelet Estimate Normal (NORMAL) 05/16/17 07:05 RBC Morphology Normal 05/16/17 07:05 PT 10.7 SECONDS (9.7-12.2) 05/16/17 07:05 INR 1.0 05/16/17 07:05 APTT 27 SECONDS (21-34) 05/16/17 07:05 Sodium 145 mmol/L (132-148) 05/17/17 06:43 Potassium 3.7 mmol/L (3.6-5.2) 05/17/17 06:43 Chloride 110 mmol/L (98-107) H 05/17/17 06:43 Carbon Dioxide 24 mmol/L (22-30) 05/17/17 06:43 Anion Gap 15 (10-20) 05/17/17 06:43 BUN 15 mg/dL (7-17) 05/17/17 06:43 Creatinine 0.7 MG/DL (0.7-1.2) 05/17/17 06:43 Est GFR ( Amer) > 60 05/17/17 06:43 Est GFR (Non-Af Amer) > 60 05/17/17 06:43 POC Glucose (mg/dL) 107 mg/dL (65-110) 05/15/17 07:58 Random Glucose 86 mg/dL (65-105) 05/17/17 06:43 Hemoglobin A1c 6.1 % (4.2-6.5) 05/16/17 07:05 Calcium 7.7 mg/dl (8.6-10.4) L 05/17/17 06:43 Phosphorus 2.7 mg/dL (2.5-4.5) 05/17/17 06:43 Magnesium 2.1 mg/dL (1.6-2.3) 05/17/17 06:43 Total Bilirubin 0.5 mg/dL (0.2-1.3) 05/17/17 06:43 AST 24 U/L (14-36) 05/17/17 06:43 ALT 32 U/L (9-52) 05/17/17 06:43 Alkaline Phosphatase 71 U/L (38-126) 05/17/17 06:43 Total Creatine Kinase 49 U/L (30-135) 05/17/17 01:01 CK-MB (Mass) 0.62 ng/mL (0.0-3.38) 05/17/17 01:01 Troponin I < 0.0120 ng/mL (0.00-0.120) 05/15/17 08:36 Troponin I, Quant < 0.0120 ng/mL (0.00-0.120) 05/17/17 01:01 Total Protein 5.7 g/dL (6.3-8.3) L 05/17/17 06:43 Albumin 2.9 g/dL (3.5-5.0) L 05/17/17 06:43 Globulin 2.8 gm/dL (2.2-3.9) 05/17/17 06:43 Albumin/Globulin Ratio 1.0 (1.0-2.1) 05/17/17 06:43 Triglycerides 128 mg/dL (0-149) 05/15/17 08:36 Cholesterol 189 mg/dL (0-199) 05/15/17 08:36 LDL Cholesterol Direct 135 mg/dL (0-129) H 05/15/17 08:36 HDL Cholesterol 44 mg/dL (30-70) 05/15/17 08:36 Thyroxine (T4) 5.33 ug/dL (5.5-11.0) L 05/16/17 07:05 TSH 3rd Generation 0.83 mIU/L (0.46-4.68) 05/16/17 07:05 Urine Color Straw (YELLOW) 05/15/17 11:05 Urine Clarity Clear (Clear) 05/15/17 11:05 Urine pH 7.0 (5.0-8.0) 05/15/17 11:05 Ur Specific [place] 1.005 (1.003-1.030) 05/15/17 11:05 Urine Protein Negative mg/dL (NEGATIVE) 05/15/17 11:05 Urine Glucose (UA) Normal mg/dL (Normal) 05/15/17 11:05 Urine Ketones Negative mg/dL (NEGATIVE) 05/15/17 11:05 Urine Blood Negative (NEGATIVE) 05/15/17 11:05 Urine Nitrate Negative (NEGATIVE) 05/15/17 11:05 Urine Bilirubin Negative (NEGATIVE) 05/15/17 11:05 Urine Urobilinogen Normal mg/dL (0.2-1.0) 05/15/17 11:05 Ur Leukocyte Esterase Neg Benjy/uL (Negative) 05/15/17 11:05 Urine WBC (Auto) 2 /hpf (0-5) 05/15/17 11:05 Urine RBC (Auto) < 1 /hpf (0-3) 05/15/17 11:05 Ur Squamous Epith Cells 2 /hpf (0-5) 05/15/17 11:05 Urine Bacteria Rare (<OCC) 05/15/17 11:05 - Hospital Course Hospital Course: "CC: right facial numbness 56 year old female with past medical history of arthritis, gastritis and migraines presents with right sided orbital pain, right facial numbness and tingling and right eye floaters. These symptoms began last night around 6 pm. Since last night symptoms improved, but this morning symptoms worsened. Patient did not take any medications for her symptoms. Patient denies having any weakness, numbness or tingling in here extremities. Patient denies having these symptoms before. She states that this pain does not feel like her HAs in the past. patient denies having any CP, SOB, abd pain, N/v/d/C. In ED, patient had CT of head which was negative. 12 point ROS are negative except for the above mentioned." Patient was admitted to the hospital for a TIA workup which was found to be negative. * Head CT (05/15/17): No acute intracranial hemorrhage. Mild generalized volume loss. * Carotid doppler (05/15): negative * Echo (05/15): Left Ventricle systolic function is normal, Ejection Fraction is >70%, diastolic dysfunction, trace aortic regurgitation, mitral regurg is mild, mild tricuspid regurg, no pulmonary hypertension, no pulmonic valvular regurg. * Brain MRI (05/16/17): no acute intracranial abnormality, specifically, no evidence of acute infarction. Focal abnormal signal in the left posterior cortex is strictly nonspecific, old infarction, encephalitis, neoplasm not excluded * Head MRA (05/16/17): normal MR angiography of the brain * Neck MRA (05/16/17): normal MR angiography of the neck * Brain MRI w and w/out contrast (05/17): stable age related neuro degenerative change. low grade neoplasm difficult to completely exclude, post seizure related reaction is possible, encephalitis is not favored given lack of IV contrast enhancement, lack of focal restricted diffusion is not supportive of an infarction Dr. Stephesnon (neurology) consulted recommended loading with Plavix 300 mg PO once and aspirin 81 mg daily, Magnesium Sulfate 2 grams IV once, Decadron 10 mg IV once for migraine, Crestor 10 mg PO daily to maintain LDL< 100. Dr. Smiley, (ophthalmology) consulted for right eye floaters, recommended patient to follow up as outpatient. Patient no longer feeling facial numbness or headache. Will follow up with neurology outpatient for EEG. This is a summary of the patient's hospital course. Please see chart for details. Discharge Exam - Head Exam Head Exam: ATRAUMATIC, NORMAL INSPECTION, NORMOCEPHALIC Discharge Plan - Discharge Medications Prescriptions: Aspirin [Ecotrin] 81 mg PO DAILY #30 Rosuvastatin Calcium [Crestor] 10 mg PO HS #30 tab Topiramate [Topamax] 25 mg PO BID #60 tab - Follow Up Plan Condition: STABLE Disposition: HOME/ ROUTINE Instructions: Transient Ischemic Attack (DC), Heart Healthy Diet (DC) Additional Instructions: Patient stable for discharge as per Dr. Mills. Patient to follow up with Dr. Ziegler (neurology) within one week of discharge. Patient to get EEG as an outpatient. Patient to follow up with Dr. Mendes (eye doctor) within one week (phone: [phone]). Patient to take Aspirin 81 mg daily, Crestor 10 mg at night, and Topamax 25mg BID for migraine and possible seizure prophylaxis. If symptoms worsen or return please return to Emergency Room Immediately. Patient explained instructions who understood and agreed. Referrals: [facility] [Provider Group] Dustin Ziegler MD [Staff Provider] - Mike Mendes MD [Staff Provider] - <LinaKofi - Last Filed: 06/21/17 12:35> Provider - Provider Date of Admission: 05/15/17 09:50 Attending physician: Igor Wolf MD Hospital Course - Lab Results Lab Results: Most Recent Lab Values WBC 8.2 K/uL (4.8-10.8) 05/17/17 06:43 RBC 4.01 Mil/uL (3.80-5.20) 05/17/17 06:43 Hgb 12.2 g/dL (11.0-16.0) 05/17/17 06:43 Hct 35.3 % (34.0-47.0) 05/17/17 06:43 MCV 87.9 fL (81.0-99.0) 05/17/17 06:43 MCH 30.5 pg (27.0-31.0) 05/17/17 06:43 MCHC 34.7 g/dL (33.0-37.0) 05/17/17 06:43 RDW 13.7 % (11.5-14.5) 05/17/17 06:43 Plt Count 181 K/uL (130-400) 05/17/17 06:43 MPV 8.2 fL (7.2-11.7) 05/17/17 06:43 Neut % (Auto) 50.3 % (50.0-75.0) 05/17/17 06:43 Lymph % (Auto) 42.0 % (20.0-40.0) H 05/17/17 06:43 [place] % (Auto) 6.4 % (0.0-10.0) 05/17/17 06:43 Eos % (Auto) 0.7 % (0.0-4.0) 05/17/17 06:43 Baso % (Auto) 0.6 % (0.0-2.0) 05/17/17 06:43 Neut # 4.1 K/uL (1.8-7.0) 05/17/17 06:43 Lymph # 3.4 K/uL (1.0-4.3) 05/17/17 06:43 [place] # 0.5 K/uL (0.0-0.8) 05/17/17 06:43 Eos # 0.1 K/uL (0.0-0.7) 05/17/17 06:43 Baso # 0.0 K/uL (0.0-0.2) 05/17/17 06:43 Neutrophils % (Manual) 89 % (50-75) H 05/16/17 07:05 Lymphocytes % (Manual) 10 % (20-40) L 05/16/17 07:05 Monocytes % (Manual) 1 % (0-10) 05/16/17 07:05 Platelet Estimate Normal (NORMAL) 05/16/17 07:05 RBC Morphology Normal 05/16/17 07:05 PT 10.7 SECONDS (9.7-12.2) 05/16/17 07:05 INR 1.0 05/16/17 07:05 APTT 27 SECONDS (21-34) 05/16/17 07:05 Sodium 145 mmol/L (132-148) 05/17/17 06:43 Potassium 3.7 mmol/L (3.6-5.2) 05/17/17 06:43 Chloride 110 mmol/L (98-107) H 05/17/17 06:43 Carbon Dioxide 24 mmol/L (22-30) 05/17/17 06:43 Anion Gap 15 (10-20) 05/17/17 06:43 BUN 15 mg/dL (7-17) 05/17/17 06:43 Creatinine 0.7 MG/DL (0.7-1.2) 05/17/17 06:43 Est GFR ( Amer) > 60 05/17/17 06:43 Est GFR (Non-Af Amer) > 60 05/17/17 06:43 POC Glucose (mg/dL) 107 mg/dL (65-110) 05/15/17 07:58 Random Glucose 86 mg/dL (65-105) 05/17/17 06:43 Hemoglobin A1c 6.1 % (4.2-6.5) 05/16/17 07:05 Calcium 7.7 mg/dl (8.6-10.4) L 05/17/17 06:43 Phosphorus 2.7 mg/dL (2.5-4.5) 05/17/17 06:43 Magnesium 2.1 mg/dL (1.6-2.3) 05/17/17 06:43 Total Bilirubin 0.5 mg/dL (0.2-1.3) 05/17/17 06:43 AST 24 U/L (14-36) 05/17/17 06:43 ALT 32 U/L (9-52) 05/17/17 06:43 Alkaline Phosphatase 71 U/L (38-126) 05/17/17 06:43 Total Creatine Kinase 49 U/L (30-135) 05/17/17 01:01 CK-MB (Mass) 0.62 ng/mL (0.0-3.38) 05/17/17 01:01 Troponin I < 0.0120 ng/mL (0.00-0.120) 05/15/17 08:36 Troponin I, Quant < 0.0120 ng/mL (0.00-0.120) 05/17/17 01:01 Total Protein 5.7 g/dL (6.3-8.3) L 05/17/17 06:43 Albumin 2.9 g/dL (3.5-5.0) L 05/17/17 06:43 Globulin 2.8 gm/dL (2.2-3.9) 05/17/17 06:43 Albumin/Globulin Ratio 1.0 (1.0-2.1) 05/17/17 06:43 Triglycerides 128 mg/dL (0-149) 05/15/17 08:36 Cholesterol 189 mg/dL (0-199) 05/15/17 08:36 LDL Cholesterol Direct 135 mg/dL (0-129) H 05/15/17 08:36 HDL Cholesterol 44 mg/dL (30-70) 05/15/17 08:36 Thyroxine (T4) 5.33 ug/dL (5.5-11.0) L 05/16/17 07:05 TSH 3rd Generation 0.83 mIU/L (0.46-4.68) 05/16/17 07:05 Urine Color Straw (YELLOW) 05/15/17 11:05 Urine Clarity Clear (Clear) 05/15/17 11:05 Urine pH 7.0 (5.0-8.0) 05/15/17 11:05 Ur Specific [place] 1.005 (1.003-1.030) 05/15/17 11:05 Urine Protein Negative mg/dL (NEGATIVE) 05/15/17 11:05 Urine Glucose (UA) Normal mg/dL (Normal) 05/15/17 11:05 Urine Ketones Negative mg/dL (NEGATIVE) 05/15/17 11:05 Urine Blood Negative (NEGATIVE) 05/15/17 11:05 Urine Nitrate Negative (NEGATIVE) 05/15/17 11:05 Urine Bilirubin Negative (NEGATIVE) 05/15/17 11:05 Urine Urobilinogen Normal mg/dL (0.2-1.0) 05/15/17 11:05 Ur Leukocyte Esterase Neg Benjy/uL (Negative) 05/15/17 11:05 Urine WBC (Auto) 2 /hpf (0-5) 05/15/17 11:05 Urine RBC (Auto) < 1 /hpf (0-3) 05/15/17 11:05 Ur Squamous Epith Cells 2 /hpf (0-5) 05/15/17 11:05 Urine Bacteria Rare (<OCC) 05/15/17 11:05 Attending/Attestation - Attestation I have personally seen and examined this patient.: Yes I have fully participated in the care of the patient.: Yes I have reviewed all pertinent clinical information, including history, physical exam and plan: Yes Notes (Text): Patient was admitted to the hospital for a TIA workup which was found to be negative. Will follow up with Neurology for EEG as outpatient.
--- NOTE | 2017-05-20 10:12 | CARD ---
APPROVED REPORT EKG Measurement Heart [id number] <Conclusion> Normal sinus rhythm Normal ECG
== END 2017-05-17 19:41 | disposition home or self-care (01) ==
LOC: C.ER 07:38 → MERGE 09:50 → C.9E 09:50 → C.6T 11:25
PROVIDERS: ADMIT Internal Medicine; ATTEND Internal Medicine
DX: R20.9 Unspecified disturbances of skin sensation (principal); E78.5 Hyperlipidemia, unspecified; G43.909 Migraine, unspecified, not intractable, without status migrainosus
CPT/HCPCS: 36415; 70450; 70544; 70547; 70551; 70552; 71010; 80053; 80061; 81001; 82948; 83036; 83735; 84100; 84436; 84443; 84484; 85025; 85610; 85730; 93306; 93880; 96372; 96374; 97116; 97162; 97165; 97530; 99285; A9579; G0378; G8978; G8979; G8987; G8988; G8989; J1100; J1650; J7040